=== PATIENT | male | born 1945 | race Caucasian/White ===

== ENCOUNTER 2017-07-22 03:07 | Emergency (ER) | payer MEDICARE, OTHER ==
[2017-07-22 03:32] VITALS: BP 116/69
[2017-07-22] MEDS ORDERED: LIDOCAINE 1% INJ-PF (10 MG/ML) 30 ML SDV INJ ONE (03:46)
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
[2017-07-22] MEDS ORDERED: HYDROCODONE/ACETAMINOPHEN 5-325 MG 6 TAB/DSPK PO PRN (05:07)
== END 2017-07-22 05:13 | disposition home or self-care (01) ==
LOC: ER 03:07
PROC: 0HQ1XZZ Repair Face Skin, External Approach (ICD-10-PCS; principal; 2017-07-22)
DX: S01.81XA Laceration without foreign body of other part of head, initial encounter (principal); S09.90XA Unspecified injury of head, initial encounter; S00.83XA Contusion of other part of head, initial encounter; Y04.2XXA Assault by strike against or bumped into by another person, initial encounter; I10 Essential (primary) hypertension; J45.909 Unspecified asthma, uncomplicated; E11.9 Type 2 diabetes mellitus without complications; E78.00 Pure hypercholesterolemia, unspecified
CPT/HCPCS: 99284; 70450; 70486; 12014; A9270

== ENCOUNTER 2017-07-29 16:46 | Emergency (ER) | payer MEDICARE, OTHER ==
--- NOTE | 2017-07-29 18:09 | ER Document Report ---
HPI - HPI Pain Level: Denies Notes: Patient is a 72-year-old male who presents to the ED for suture removal status post laceration repair about a week ago. Patient states that he did go see his PCM recently who did remove some of the sutures, but left others in that he did not see. Patient states that otherwise he is doing well without any worsening redness or purulent discharge. Patient has not noticed any wound dehiscence. Denies any headache, fever, neck pain, URI, sore throat, chest pain, palpitations, syncope, cough, shortness of breath, wheeze, dyspnea, abdominal pain, nausea/vomiting/diarrhea, numbness/tingling, or rash. - ROS Notes: REVIEW OF SYSTEMS: CONSTITUTIONAL : Denies fever, chills, or sweats. Denies recent illness. EENT: Denies eye, ear, throat, or mouth pain or symptoms. Denies nasal or sinus congestion or discharge. Denies throat, tongue, or mouth swelling or difficulty swallowing. CARDIOVASCULAR: Denies chest pain. Denies palpitations or racing or irregular heart beat. Denies ankle edema. RESPIRATORY: Denies cough, cold, or chest congestion. Denies shortness of breath, difficulty breathing, or wheezing. GASTROINTESTINAL: Denies abdominal pain or distention. Denies nausea, vomiting , or diarrhea. Denies blood in vomitus, stools, or per rectum. Denies black, tarry stools. Denies constipation. GENITOURINARY: Denies difficulty urinating, painful urination, burning, frequency, blood in urine, or discharge. MUSCULOSKELETAL: Denies back or neck pain or stiffness. Denies joint pain or swelling. SKIN: see hpi NEUROLOGICAL: Denies confusion or altered mental status. Denies passing out or loss of consciousness. Denies dizziness or lightheadedness. Denies headache. Denies weakness or paralysis or loss of use of either side. Denies problems with gait or speech. Denies sensory loss, numbness, or tingling. ALL OTHER SYSTEMS REVIEWED AND NEGATIVE. Dictation was performed using [employer] recognition software - CONSTITUTIONAL Constitutional: DENIES: Fever, Chills - EENT EENT: DENIES: Sore Throat, Ear Pain, Nasal Drainage-Clear, Nasal Drainage- Purulent, Congestion, Eye problems - NEURO Neurology: DENIES: Headache, Weakness, Vision blurred, Dizzinesss / Vertigo - RESPIRATORY Respiratory: DENIES: Trouble Breathing, Coughing - GASTROINTESTINAL Gastrointestinal: DENIES: Abdominal Pain, Nausea, Patient vomiting, Diarrhea, Constipation, Black / Bloody Stools - URINARY Urinary: DENIES: Dysuria, Urgency, Frequency - MUSCULOSKELETAL Musculoskeletal: DENIES: Extremity pain, Back Pain, Neck Pain, Swelling - DERM Skin Color: Normal - NURSING COMMENTS Comment: Pt here for suture removal, placed 1 week ago, denies any S/S of infection, NAD noted, ambulated to room 21 with steady gait. Past Medical History - Social History Smoking Status: Unknown if Ever Smoked Family History: Reviewed & Not Pertinent Patient has suicidal ideation: No Patient has homicidal ideation: No - Past Medical History Cardiac Medical History: Reports: Hx Hypercholesterolemia, Hx Hypertension Pulmonary Medical History: Reports: Hx Asthma Endocrine Medical History: Reports: Hx Diabetes Mellitus Type 1, Hx Diabetes Mellitus Type 2 Renal/ Medical History: Denies: Hx Peritoneal Dialysis - Immunizations Immunizations up to date: Yes Hx Diphtheria, Pertussis, Tetanus Vaccination: Yes Vertical Provider Document - CONSTITUTIONAL Agree With Documented VS: Yes Notes: PHYSICAL EXAMINATION: GENERAL: Well-appearing, well-nourished and in no acute distress. HEAD: Atraumatic, normocephalic. EYES: Pupils equal round and reactive to light, extraocular movements intact, sclera anicteric, conjunctiva are normal. ENT: EAC clear b/l. TM's intact b/l without erythema, fluid, or perforation. Nares patent and without discharge. oropharynx clear without exudates. No tonsilar hypertrophy or erythema. Moist mucous membranes. No sinus tenderness. NECK: Normal range of motion, supple without lymphadenopathy LUNGS: Breath sounds clear to auscultation bilaterally and equal. No wheezes rales or rhonchi. HEART: Regular rate and rhythm without murmurs, rubs, gallops. NEUROLOGICAL: Cranial nerves grossly intact. Normal speech, normal gait. Normal sensory, motor exams PSYCH: Normal mood, normal affect. SKIN: There appears to be 5 remaining sutures that need taken out. Wound w/o erythema, abscess, wound dehiscense, streaks, or discharge. Appear well-healed. - INFECTION CONTROL TRAVEL OUTSIDE OF THE [place] IN LAST 30 DAYS: No - RESPIRATORY O2 Sat by Pulse Oximetry: 96 Course - Re-evaluation Re-evalutation: 07/29/17 18:12 Patient is an afebrile, well-hydrated, 72-year-old male who presents the ED for suture removal of remaining sutures left by his PCM. Vitals are stable. PE otherwise unremarkable. 5 simple sutures were removed that were left over. I do not see any other evidence of remaining sutures at this time. Patient to monitor for any signs of infection or wound dehiscence. Recheck with your PCM this week. Return to the ED with any worsening/concerning symptoms otherwise as reviewed discharge. Patient is in agreement. - Vital Signs Vital signs: Temp Pulse Resp BP Pulse Ox 98.6 F 81 20 142/69 H 96 07/29/17 17:14 07/29/17 17:14 07/29/17 17:14 07/29/17 17:14 07/29/17 17:14 Discharge - Discharge Clinical Impression: Encounter for removal of sutures Disposition: HOME, SELF-CARE Instructions: Suture Removal Additional Instructions: Monitor for any signs of infection (redness, streaks, abscess, discharge, fever ) and seek medical attention if so. Keep the skin clean and dry Recheck with your PCM this week Return to the ED with any worsening or concerning symptoms. Forms: Elevated Blood Pressure
[2017-07-29 18:38] VITALS: BP 121/68
== END 2017-07-29 18:31 | disposition home or self-care (01) ==
LOC: ER 16:46
DX: Z48.02 Encounter for removal of sutures (principal)

== ENCOUNTER → 2017-11-23 | Outpatient (CLI) | payer MEDICARE, OTHER ==
--- NOTE | 2017-11-23 15:14 | RADIOLOGY REPORT (SQ) ---
EXAM DESCRIPTION: CT ABD/PELVIS WITH IV ONLY COMPLETED DATE/TIME: 11/23/2017 2:58 pm REASON FOR STUDY: LLQ PAIN (R10.32) R10.32 LEFT LOWER QUADRANT PAIN COMPARISON: None. TECHNIQUE: CT scan of the abdomen and pelvis performed using helical scanning technique with dynamic intravenous contrast injection. No oral contrast. Images reviewed with lung, soft tissue, and bone windows. Reconstructed coronal and sagittal MPR images reviewed. Delayed images for evaluation of the urinary system also acquired. All images stored on PACS. All CT scanners at this facility use dose modulation, iterative reconstruction, and/or weight based d osing when appropriate to reduce radiation dose to as low as reasonably achievable (ALARA). [facility]: Dose Right [facility]: CareDose [facility]: Dose Right [facility]: Teradose 4D [facility]: [employer] CONTRAST TYPE AND DOSE: contrast/concentration: Isovue 370.00 mg/ml; Total Contrast Delivered: 97.0 ml; Total Saline Delivered: 70.0 ml RENAL FUNCTION: Creatinine 1.4. RADIATION DOSE: CT Rad equipment meets quality standard of care and radiation dose reduction techniq ues were employed. CTDIvol: 22.8 - 24.7 mGy. DLP: 2663 mGy-cm.. LIMITATIONS: None. FINDINGS: LOWER CHEST: No significant findings. No nodules or infiltrates. LIVER: Normal size. Diffuse fatty infiltration. No masses. No dilated ducts. SPLEEN: Normal size. No focal lesions. PANCREAS: No masses. No significant calcifications. No adjacent inflammation or peripancreatic fluid collections. Pancreatic duct not dilated. GALLBLADDER: No identified stones by CT criteria. No inflammatory changes to suggest cholecystitis. ADRENAL GLANDS: Fatty lesions in the left adrenal gland measuring 1.2 cm and 2 cm. RIGHT KIDNEY AND URETER: No solid masses. 2 cm cortical cyst. 3 mm calyceal calculus. No hydrone phrosis or hydroureter. LEFT KIDNEY AND URETER: Cortical cysts. No solid masses. No significant calcifications. No hydro nephrosis or hydroureter. AORTA AND VESSELS: No aneurysm. No dissection. Renal arteries, SMA, celiac without stenosis. RETROPERITONEUM: No retroperitoneal adenopathy, hemorrhage or masses. BOWEL AND PERITONEAL CAVITY: Colonic diverticuli. Mild focal inflammation involving the proximal sig moid colon. No abnormal fluid collection. No extraluminal gas. . No free fluid or peritoneal arcelia s. APPENDIX: Normal. PELVIS: No mass. No free fluid. Normal bladder. ABDOMINAL WALL: No masses. Umbilical hernia containing fat only. No involvement of bowel. BONES: No significant or acute findings. OTHER: No other significant finding. IMPRESSION: 1. MILD EARLY DIVERTICULITIS INVOLVING THE PROXIMAL SIGMOID COLON. NO EVIDENCE OF ABSCESS OR PERFORA TION. 2. SMALL NONOBSTRUCTING CALYCEAL CALCULUS IN THE RIGHT KIDNEY. CORTICAL CYSTS IN BOTH KIDNEYS. 3. 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 4. SMALL UMBILICAL HERNIA CONTAINING FAT. NO INVOLVEMENT OF BOWEL. 5. NO OTHER SIGNIFICANT FINDINGS. TECHNICAL DOCUMENTATION: JOB ID: [id number] Quality ID # 436: Final reports with documentation of one or more dose reduction techniques (e.g., Au tomated exposure control, adjustment of the mA and/or kV according to patient size, use of iterative reconstruction technique) 2010 [employer]- All Rights Reserved
== END ==
LOC: RAD 13:24
PROVIDERS: ATTEND Internal Medicine
DX: R10.32 Left lower quadrant pain (principal)
CPT/HCPCS: 74177; 82565

== ENCOUNTER → 2018-08-25 | Outpatient (CLI) | payer MEDICARE, OTHER ==
--- NOTE | 2018-08-25 14:21 | RADIOLOGY REPORT (SQ) ---
EXAM DESCRIPTION: CHEST 2 VIEWS COMPLETED DATE/TIME: 08/25/2018 1:11 pm REASON FOR STUDY: J20.9 ACUTE BRONCHITIS, UNSPEC ORGANISM COMPARISON: None. EXAM PARAMETERS: NUMBER OF VIEWS: two views TECHNIQUE: Digital Frontal and Lateral radiographic views of the chest acquired. RADIATION DOSE: NA LIMITATIONS: none FINDINGS: LUNGS AND PLEURA: No consolidation, pneumothorax or pleural effusion. MEDIASTINUM AND HILAR STRUCTURES: No masses or contour abnormalities. HEART AND VASCULAR STRUCTURES: Heart normal size. No evidence for failure. BONES: Degenerative changes are noted at the spine. HARDWARE: None in the chest. IMPRESSION: NO ACUTE RADIOGRAPHIC FINDING IN THE CHEST. TECHNICAL DOCUMENTATION: JOB ID: [id number] 2010 [employer]- All Rights Reserved Reading location - IP/workstation name: [email or web address]
== END ==
LOC: RAD 12:53
PROVIDERS: ATTEND Nurse Practitioner Family
DX: J20.9 Acute bronchitis, unspecified (principal)
CPT/HCPCS: 71046

== ENCOUNTER 2020-01-28 12:26 | Inpatient (IN) | payer MEDICARE, OTHER ==
[2020-01-28] MEDS: NORMAL SALINE 1000 ML 1,000 ML IV PRN (13:14)
[2020-01-28 14:08] LABS: HEMATOCRIT 43.5 % (37.9-51.0); HEMOGLOBIN 15.5 g/dL (13.5-17.0); MEAN CORPUSCULAR HEMOGLOBIN 31.7 pg (27.0-33.4); MEAN CORPUSCULAR HGB CONC 35.6 g/dL (32.0-36.0); MEAN CORPUSCULAR VOLUME 89 fl (80-97); PLATELET COUNT 174 10^3/uL (150-450); RED BLOOD COUNT 4.87 10^6/uL (4.35-5.55); RED CELL DISTRIBUTION WIDTH 13.4 % (11.5-14.0); WHITE BLOOD COUNT 13.3 10^3/uL (4.0-10.5)
--- NOTE | 2020-01-28 14:11 | RADIOLOGY REPORT (SQ) ---
EXAM DESCRIPTION: CHEST SINGLE VIEW IMAGES COMPLETED DATE/TIME: 01/28/2020 1:56 pm REASON FOR STUDY: orthostasis COMPARISON: 08/25/2018. EXAM PARAMETERS: NUMBER OF VIEWS: One view. TECHNIQUE: Single frontal radiographic view of the chest acquired. RADIATION DOSE: NA LIMITATIONS: None. FINDINGS: LUNGS AND PLEURA: No opacities, masses or pneumothorax. No pleural effusion. MEDIASTINUM AND HILAR STRUCTURES: No masses. Contour normal. HEART AND VASCULAR STRUCTURES: Heart normal in size. Normal vasculature. BONES: No acute findings. HARDWARE: None in the chest. OTHER: No other significant finding. IMPRESSION: No evidence of acute cardiopulmonary process. TECHNICAL DOCUMENTATION: JOB ID: [id number] 2010 [employer]- All Rights Reserved Reading location - IP/workstation name: [email or web address]
[2020-01-28] MEDS ORDERED: GLUCAGON,HUMAN RECOMB 1 MG INJ IM PRN (14:30)
[2020-01-28] MEDS ORDERED: DEXTROSE 40% GEL 15 GM TUBE PO PRN (14:30)
[2020-01-28] MEDS ORDERED: DEXTROSE 50%-WATER SYRINGE 12.5 GM/25 ML DOSE IV PRN (14:30)
[2020-01-28] MEDS ORDERED: DEXTROSE 40% GEL 15 GM TUBE X 2 PO PRN (14:30)
[2020-01-28] MEDS ORDERED: DEXTROSE 50%-WATER SYRINGE 25 GM/50 ML DOSE IV PRN (14:30)
[2020-01-28 14:31] LABS: ALKALINE PHOSPHATASE 42 U/L (38-126); ANION GAP 17 (5-19); ASPARTATE AMINO TRANSFERASE 35 U/L (17-59); BILIRUBIN,DIRECT 0.3 mg/dL (0.0-0.4); BILIRUBIN,TOTAL 0.9 mg/dL (0.2-1.3); BLOOD UREA NITROGEN 48 mg/dL (7-20); CARBON DIOXIDE 20 mmol/L (22-30); CHLORIDE 93 mmol/L (98-107); CREATINE KINASE 158 U/L (55-170); GLUCOSE 191 mg/dL (75-110); POTASSIUM 3.6 mmol/L (3.6-5.0)
[2020-01-28 14:42] LABS: CREATINE KINASE MB 1.17 ng/mL (<4.55); TROPONIN I 0.025 ng/mL
--- NOTE | 2020-01-28 15:41 | RADIOLOGY REPORT (SQ) ---
EXAM DESCRIPTION: CT HEAD WITHOUT IMAGES COMPLETED DATE/TIME: 01/28/2020 2:42 pm REASON FOR STUDY: altered mental status COMPARISON: 07/22/2017 TECHNIQUE: Axial images acquired through the brain without intravenous contrast. Images reviewed wi th bone, brain and subdural windows. Additional sagittal and coronal reconstructions were generated. Images stored on PACS. All CT scanners at this facility use dose modulation, iterative reconstruction, and/or weight based d osing when appropriate to reduce radiation dose to as low as reasonably achievable (ALARA). [facility]: Dose Right [facility]: CareDose [facility]: Dose Right [facility]: Teradose 4D [facility]: [employer] RADIATION DOSE: CT Rad equipment meets quality standard of care and radiation dose reduction techniq ues were employed. CTDIvol: 48.6 mGy. DLP: 954 mGy-cm. mGy. LIMITATIONS: None. FINDINGS: VENTRICLES: Age-appropriate. CEREBRUM: No masses. No hemorrhage. No midline shift. Areas of low density in the white matter mos t likely due to chronic micro-vascular ischemic change. No evidence for acute infarction. Bilateral basal ganglia mineralization. CEREBELLUM: No masses. No hemorrhage. No alteration of density. No evidence for acute infarction. EXTRAAXIAL SPACES: Mild age-related involutional change. No fluid collections. No masses. ORBITS AND GLOBE: No intra- or extraconal masses. Normal contour of globe without masses. CALVARIUM: No fracture. PARANASAL SINUSES: No fluid or mucosal thickening. SOFT TISSUES: No mass or hematoma. Scattered tonsilliths. OTHER: Vascular calcifications. IMPRESSION: MILD CHRONIC CHANGES OF ATROPHY AND MICROVASCULAR ISCHEMIA. NO ACUTE PROCESS. EVIDENCE OF ACUTE STROKE: NO. TECHNICAL DOCUMENTATION: JOB ID: [id number] Quality ID # [id number]: Final reports with documentation of one or more dose reduction techniques (e.g., Au tomated exposure control, adjustment of the mA and/or kV according to patient size, use of iterative reconstruction technique) 2010 [employer]- All Rights Reserved Reading location - IP/workstation name: [email or web address]
[2020-01-28] MEDS: INSULIN LISPRO 100 UNIT/ML 3 ML VIAL SUBCUT SCH ×2 (16:20→21:55)
--- NOTE | 2020-01-28 16:30 | RADIOLOGY REPORT (SQ) ---
EXAM DESCRIPTION: U/S RETROPERITON (RENAL/AORTA) IMAGES COMPLETED DATE/TIME: 01/28/2020 4:04 pm REASON FOR STUDY: acute kidney injury COMPARISON: 11/23/2017 TECHNIQUE: Dynamic and static grayscale images acquired of the kidneys and bladder and recorded on P ACS. Additional selected color Doppler and spectral images recorded. LIMITATIONS: None. FINDINGS: RIGHT KIDNEY: Normal size measuring 12.8 cm. Normal echogenicity. No solid or suspicious m asses. There is a interpolar cyst measuring 2.0 cm. No hydronephrosis. No calcifications. LEFT KIDNEY: Normal size measuring 12.1 cm. Normal echogenicity. No solid or suspicious masses. A l ower pole cystic lesion measuring up to 2.9 cm, likely cyst and minimally increased in size from prio r CT. Possible mild fullness of the renal pelvis. No caliceal dilation. BLADDER: No masses. OTHER FINDINGS: No other significant finding. IMPRESSION: Bilateral renal cysts, largest on the left measuring 2.9 cm. Mild fullness of the left renal pelvis. No caliceal dilation. TECHNICAL DOCUMENTATION: JOB ID: [id number] 2010 [employer]- All Rights Reserved Reading location - IP/workstation name: [email or web address]
[2020-01-28 17:13] LABS: CHOLESTEROL 100.82 mg/dL (0-200); TRIGLYCERIDES 125 mg/dL (<150)
--- NOTE | 2020-01-28 17:19 | PDOC H&P ---
History of Present Illness Admission Date/PCP: 01/28/20 12:26 CATALINA MORIN MD History of Present Illness: BRENNAN MURRY is a 75 year old male, He came to the office today for eval uation of multiple nonspecific symptoms, he said he pressure wash his house last weekend and he has not felt the same ever since then, he complain of generalized myalgia, extreme fatigue, not able to focus. In the office he was evaluated he was found to have unusually low blood pressure, the systolic pressure was 70s systolic, standing, he was orthostatic the blood pressure in supine was 110, bec ause of the orthostasis and the fact that he has none specific symptoms and he also looks very slow somewhat altered, out of character he is slow to answer questions I felt it is best to admit him directly to the hospital for further evaluation.The hemogram revealed leukocytosis, WBC 13,000, the metabolic profile revealed hyponatremia sodium 129, elevated serum creatinine at 1.6. The serum osmolality was normal, the urine osmolality was high, kidney ultrasound that was normal at the ureter/renal process there was cyst in the kidney in the inferior pole of the kidneys Past Medical History Cardiac Medical History: Reports: Hyperlipidema, Hypertension Pulmonary Medical History: Reports: Asthma Endocrine Medical History: Reports: Diabetes Mellitus Type 2, Obesity Social History Smoking Status: Never Smoker Electronic Cigarette use?: No Frequency of Alcohol Use: None Hx Recreational Drug Use: No Hx Prescription Drug Abuse: No Family History Family History: Reviewed & Not Pertinent Parental Family History Reviewed: Yes Children Family History Reviewed: Yes Sibling(s) Family History Reviewed.: Yes Medication/Allergy Home Medications: Albuterol Sulfate [Ventolin Hfa 8 gm Mdi] 2 puff IH Q6HP PRN 01/28/20 Amlodipine Besylate [Norvasc 10 mg Tablet] 10 mg PO DAILY 01/28/20 Aspirin [Ecotrin 81 mg EC Tablet] 81 mg PO DAILY 01/28/20 Atorvastatin Calcium [Lipitor 40 mg Tablet] 40 mg PO QHS 01/28/20 Glipizide [Glucotrol 10 mg Tablet] 10 mg PO BID 01/28/20 Losartan/Hydrochlorothiazide [Losartan-Hctz 100-25 mg Tab] 1 tab PO DAILY 01/28/20 Metformin HCl [Glucophage] 1,000 mg PO BID 01/28/20 Montelukast Sodium [Singulair 10 mg Tablet] 10 mg PO QPM 01/28/20 Allergies/Adverse Reactions: No Known Allergies Allergy (Verified 07/29/17 17:18) Review of Systems Constitutional: PRESENT: fatigue, weakness Eyes: ABSENT: visual disturbances Ears: ABSENT: hearing changes Cardiovascular: ABSENT: chest pain, dyspnea on exertion, edema, orthropnea, palpitations Respiratory: ABSENT: cough, hemoptysis Gastrointestinal: ABSENT: abdominal pain, constipation, diarrhea, hematemesis, hematochezia, nausea, vomiting Genitourinary: ABSENT: dysuria, hematuria Musculoskeletal: ABSENT: joint swelling Integumentary: ABSENT: rash, wounds Neurological: ABSENT: abnormal gait, abnormal speech, confusion, dizziness, focal weakness, syncope Psychiatric: ABSENT: anxiety, depression, homidical ideation, suicidal ideation Endocrine: ABSENT: cold intolerance, heat intolerance, menstrual abnormalities, polydipsia, polyuria Hematologic/Lymphatic: ABSENT: easy bleeding, easy bruising, lymphadenopathy Physical Exam Vital Signs: Temp Pulse Resp BP Pulse Ox 97.3 F 103 H 18 93/56 L 96 01/28/20 12:48 01/28/20 12:48 01/28/20 12:48 01/28/20 12:48 01/28/20 12:48 Intake & Output 01/27/20 01/28/20 01/29/20 06:59 06:59 06:59 Weight 103.8 kg General appearance: PRESENT: other - Patient is alert somewhat confused slow to respond to questions not in acute distress Head exam: PRESENT: atraumatic, normocephalic Eye exam: PRESENT: PERRLA Ear exam: PRESENT: normal external ear exam Mouth exam: PRESENT: dry mucosa, moist, tongue midline Neck exam: PRESENT: full ROM Respiratory exam: PRESENT: clear to auscultation lizeth Cardiovascular exam: PRESENT: RRR, +S1, +S2 Pulses: PRESENT: normal dorsalis pedis pul, +2 pedal pulses bilateral Vascular exam: PRESENT: normal capillary refill GI/Abdominal exam: PRESENT: normal bowel sounds, soft Rectal exam: PRESENT: deferred Neurological exam: PRESENT: alert, CN II-XII grossly intact Psychiatric exam: PRESENT: appropriate affect, normal mood Skin exam: PRESENT: dry, intact, warm Results Laboratory Results: 01/28/20 13:33 01/28/20 13:33 01/28/20 01/28/20 01/28/20 13:33 13:33 13:33 WBC 13.3 H RBC 4.87 Hgb 15.5 Hct 43.5 MCV 89 MCH 31.7 MCHC 35.6 RDW 13.4 Plt Count 174 Sodium 129.8 L Potassium 3.6 Chloride 93 L Carbon Dioxide 20 L Anion Gap 17 BUN 48 H Creatinine 1.66 H Est GFR ( Amer) 49 L Glucose 191 H Serum Osmolality Calcium 9.0 Total Bilirubin 0.9 AST 35 Alkaline Phosphatase 42 Total Protein 7.0 Albumin 4.0 TSH 1.94 Free T4 Urine Osmolality 01/28/20 01/28/20 01/28/20 13:33 13:51 16:15 WBC RBC Hgb Hct MCV MCH MCHC RDW Plt Count Sodium Potassium Chloride Carbon Dioxide Anion Gap BUN Creatinine Est GFR ( Amer) Glucose Serum Osmolality 282 Calcium Total Bilirubin AST Alkaline Phosphatase Total Protein Albumin TSH Free T4 0.98 Urine Osmolality 591 01/28/20 01/28/20 13:33 13:33 Creatine Kinase 158 CK-MB (CK-2) 1.17 Troponin I 0.025 Impressions: Chest X-Ray 01/28/20 00:00 IMPRESSION: No evidence of acute cardiopulmonary process. Head CT 01/28/20 00:00 IMPRESSION: MILD CHRONIC CHANGES OF ATROPHY AND MICROVASCULAR ISCHEMIA. NO ACUTE PROCESS. EVIDENCE OF ACUTE STROKE: NO. Renal Ultrasound 01/28/20 00:00 IMPRESSION: Bilateral renal cysts, largest on the left measuring 2.9 cm. Mild fullness of the left renal pelvis. No caliceal dilation. Assessment & Plan - Diagnosis (1) Hypotension Qualifiers: Hypotension type: unspecified hypotension type Qualified Code(s): I95.9 - Hypotension, unspecified Is this a current diagnosis for this admission?: Yes Plan: The blood pressure is low with orthostasis, suggesting loss of volume, no evidence of GI bleed, The loss of volume is probably from prolonged exposure in the relatively hot weather when he did pressure washing of his house and the fact that he continued taking is medications including Invokana, losartan HCTZ which also increases loss of volume, the Invokana is not listed on the medication reconciliation because he gets samples from the office he has never filled the medication from the pharmacy so the pharmacist cannot reconcile the medication with the hospital pharmacy because he does not feel medication from them, patient will be vigorously hydrated and hopefully restore volume and blood pressure (2) Hyponatremia Is this a current diagnosis for this admission?: Yes Plan: The serum osmolality is normal suggesting pseudohyponatremia (3) Acute kidney injury Is this a current diagnosis for this admission?: Yes Plan: This is most likely prerenal azotemia
[2020-01-28 17:23] LABS: DIRECT LDL 43 mg/dL (<100)
[2020-01-28 17:32] LABS: ARTERIAL BLOOD BASE EXCESS -2.7 mmol/L; ARTERIAL BLOOD H2CO3 0.96 mmol/L (1.05-1.35); ARTERIAL BLOOD HCO3 20.5 mmol/L (20-24); ARTERIAL BLOOD O2 SATURATION 94.8 % (94-98); ARTERIAL BLOOD PCO2 31.8 mmHg (35-45); ARTERIAL BLOOD PH 7.43 (7.35-7.45); ARTERIAL BLOOD PO2 70.9 mmHg (80-100); ARTERIAL BLOOD TOTAL CO2 21.5 mmol/L (23-27)
[2020-01-28 17:34] LABS: ARTERIAL BLOOD FIO2 ROOM AIR
[2020-01-28 18:20] LABS: APPEARANCE,URINE SLIGHTLY-CLOUDY; BILIRUBIN,URINE NEGATIVE (NEGATIVE); COLOR,URINE YELLOW; GLUCOSE, URINE >=500 mg/dL (NEGATIVE); KETONES,URINE NEGATIVE (NEGATIVE); LEUKOCYTE ESTERASE,URINE NEGATIVE (NEGATIVE); NITRITE,URINE NEGATIVE (NEGATIVE); PROTEIN,URINE 30 mg/dL (NEGATIVE); URINE SPECIFIC GRAVITY 1.021; UROBILINOGEN,URINE NEGATIVE mg/dL (<2.0)
--- NOTE | 2020-01-28 18:30 | XCELERA REPORT ---
[address] [address] Transthoracic Echocardiogram Report Name: BRENNAN MURRY Age: 75 yrs Gender: Male : 1945 Patient Status: Inpatient Patient Location: [facility]^A Study Date: 01/28/2020 03:05 PM Height: 67 in Weight: 228 lb BSA: 2.1 m2 Reason For Study: hypotension Ordering Physician: CATALINA MORIN Performed By: Radha Gonzales Interpretation Summary FINDINGS: technically difficult study. LEFT VENTRICLE: LV Systolic function: LVEF is felt to be within normal limits. Best estimate is approximately LVEF is 60 %. LV Diastolic Function: Grade II diastolic dysfunction noted. Wall motion : No definite regional wall motion abnormalities are noted. Left ventricular chamber size : is within normal limit. Left ventricular wall thickness : is increased indicative of Mild LVH. INTERVENTRICULAR SEPTUM: no evidence of VSD noted. No asymmetric hypertrophy noted. RIGHT VENTRICLE: RV systolic function : is felt to be within normal limit. Right Ventricle Size : mildly dilated. LEFT ATRIUM size : mildly dilated. RIGHT ATRIUM size : is within normal limit. INTER ATRIAL SEPTUM : No definite atrial septal defect noted however a small PFO could be missed. AORTIC ROOT : seems to be within normal limits. Ascending aorta is not well visualized. INFERIOR VENA CAVA: was not well visualized. VALVES: MITRAL VALVE : Leaflets are mildly thickened. Leaflets mildly calcified. Mobility seems to be within normal limits. Mitral Regurgitation : Trace mitral regurgitation is noted. Mitral Stenosis: No mitral stenosis noted. Mitral valve prolapse : none noted. AORTIC VALVE: not well visualized, seems to be trileaflet with thickening but adequate excursion. Aortic stenosis : No aortic stenosis noted. Aortic regurgitation : No aortic incompetence noted. TRICUSPID VALVE : mobility and structures within normal limit. Tricuspid stenosis : no tricuspid stenosis noted. Tricuspid regurgitation : Trace tricuspid regurgitation noted. Estimated RVSP : tricuspid jet envelope not well defined to measure RV systolic pressure accurately. PULMONARY VALVE : was not well visualized but no significant abnormalities suspected. Pulmonary stenosis : no significant pulmonary stenosis noted. Pulmonary regurgitation : no significant pulmonary regurgitation noted. MASSES AND THROMBUS : No definite intracardiac thrombus or masses are noted. PERICARDIUM: No pericardial effusion was noted. IMPRESSION : 1. Normal LVEF. 2. Mild LVH noted. 3. Grade II Diastolic Dysfunction noted. 4. No significant valvular stenosis or regurgitation noted. MMode/2D Measurements & Calculations RVDd: 3.4 cm LVIDd: 4.9 cm FS: 38.2 % Ao root diam: 3.0 cm IVSd: 1.2 cm LVIDs: 3.0 cm EDV(Teich): 113.0 ml LVPWd: 1.0 cm ESV(Teich): 35.9 ml Ao root area: 7.0 cm2 LA dimension: 3.8 cm EF(Teich): 68.2 % Doppler Measurements & Calculations MV E max dilcia: MV P1/2t max dilcia: Ao V2 max: LV V1 max P.4 cm/sec 63.2 cm/sec 157.5 cm/sec 3.8 mmHg MV A max dilcia: MV P1/2t: 66.4 msec Ao max PG: LV V1 max: 79.8 cm/sec MVA(P1/2t): 3.3 cm2 9.9 mmHg 97.2 cm/sec MV E/A: 0.82 MV dec slope: 279.0 cm/sec2 MV dec time: 0.22 sec PA V2 max: MV P1/2t-pr_phl: 107.1 cm/sec 66.5 msec PA max P.6 mmHg : CATALINA MORIN Shyamal
[2020-01-28 21:37] LABS: CREATINE KINASE MB 1.12 ng/mL (<4.55); TROPONIN I 0.012 ng/mL
[2020-01-29] MEDS: NORMAL SALINE 1000 ML 1,000 ML IV PRN ×2 (02:04→12:16)
[2020-01-29 06:15] LABS: CREATINE KINASE MB 0.86 ng/mL (<4.55); TROPONIN I 0.021 ng/mL
[2020-01-29] MEDS: INSULIN LISPRO 100 UNIT/ML 3 ML VIAL SUBCUT SCH ×4 (08:49→21:50)
[2020-01-29 13:19] LABS: CREATINE KINASE MB 1.09 ng/mL (<4.55)
[2020-01-29 13:22] LABS: TROPONIN I < 0.012 ng/mL
[2020-01-29] MEDS ORDERED: ALBUTEROL SULFATE HFA (90 MCG/PUFF) 8 GM MDI IH PRN (17:32)
[2020-01-29] MEDS ORDERED: TAMSULOSIN HCL 0.4 MG CAP.SR.24H PO SCH (18:00)
[2020-01-29] MEDS ORDERED: MONTELUKAST SODIUM 10 MG TABLET PO SCH (18:00)
[2020-01-29] MEDS: GLIPIZIDE 10 MG TABLET PO SCH (18:02)
[2020-01-29] MEDS: ASPIRIN 81 MG TABLET, ENT COATED PO SCH (18:04)
[2020-01-29 18:05] LABS: ABSOLUTE BASOPHILS # (AUTO) 0.1 10^3/uL (0.0-0.2); ABSOLUTE LYMPHOCYTES (AUTO) 0.7 10^3/uL (0.5-4.7); ABSOLUTE MONOCYTES (AUTO) 1.4 10^3/uL (0.1-1.4); ABSOLUTE NEUT (AUTO) 6.4 10^3/uL (1.7-8.2); BASOPHILS % (AUTO) 0.7 % (0-2); EOSINOPHILS % (AUTO) 0.2 % (0-6); HEMATOCRIT 41.6 % (37.9-51.0); HEMOGLOBIN 14.6 g/dL (13.5-17.0); LYMPHOCYTES % (AUTO) 7.7 % (13-45); MEAN CORPUSCULAR HEMOGLOBIN 31.4 pg (27.0-33.4); MEAN CORPUSCULAR HGB CONC 35.1 g/dL (32.0-36.0); MEAN CORPUSCULAR VOLUME 89 fl (80-97); MONOCYTES % (AUTO) 16.7 % (3-13); PLATELET COUNT 152 10^3/uL (150-450); RED BLOOD COUNT 4.66 10^6/uL (4.35-5.55); RED CELL DISTRIBUTION WIDTH 13.2 % (11.5-14.0); SEGMENTED NEUTROPHILS % (AUTO) 74.7 % (42-78); TOTAL CELLS COUNTED % (AUTO) 100 %; WHITE BLOOD COUNT 8.5 10^3/uL (4.0-10.5)
[2020-01-29 18:21] LABS: ALBUMIN 3.4 g/dL (3.5-5.0); ALKALINE PHOSPHATASE 44 U/L (38-126); ANION GAP 10 (5-19); ASPARTATE AMINO TRANSFERASE 36 U/L (17-59); BILIRUBIN,DIRECT 0.2 mg/dL (0.0-0.4); BILIRUBIN,TOTAL 0.8 mg/dL (0.2-1.3); BLOOD UREA NITROGEN 35 mg/dL (7-20); CALCIUM 8.5 mg/dL (8.4-10.2); CARBON DIOXIDE 22 mmol/L (22-30); CHLORIDE 99 mmol/L (98-107); GLUCOSE 246 mg/dL (75-110); POTASSIUM 3.9 mmol/L (3.6-5.0); TOTAL PROTEIN 6.6 g/dL (6.3-8.2)
--- NOTE | 2020-01-29 20:14 | PDOC PROGRESS REPORT ---
Subjective Progress Note for:: 01/29/20 Subjective:: Patient seen today by the bedside, he is more focused, the blood pressure has improved is no more orthostatic this erythema is improved suggesting that the orthostasis is most likely from loss of volume due to prolonged exposure in the relatively hot weather and the fact that he was on medication that tend to induce loss of volume including Invokana.He complains of constipation, dysuria, and urine dripping that suggests enlarged prostate gland Reason For Visit: HYPOTENSION - ORTHOSTASIS Physical Exam Vital Signs: Temp Pulse Resp BP Pulse Ox 98.1 F 77 18 122/66 98 01/29/20 16:23 01/29/20 16:23 01/29/20 16:23 01/29/20 16:23 01/29/20 16:23 Intake & Output 01/28/20 01/29/20 01/30/20 06:59 06:59 06:59 Intake Total 1702 2713 Balance 1702 2713 Weight 107 kg General appearance: PRESENT: no acute distress Eye exam: PRESENT: PERRLA Mouth exam: PRESENT: moist Respiratory exam: PRESENT: clear to auscultation lizeth Cardiovascular exam: PRESENT: +S1, +S2 GI/Abdominal exam: PRESENT: soft Neurological exam: PRESENT: alert Results Laboratory Results: 01/29/20 17:47 01/29/20 17:47 01/28/20 01/29/20 01/29/20 22:14 17:47 17:47 WBC 8.5 RBC 4.66 Hgb 14.6 Hct 41.6 MCV 89 MCH 31.4 MCHC 35.1 RDW 13.2 Plt Count 152 Seg Neutrophils % 74.7 Sodium 131.2 L Potassium 3.9 Chloride 99 Carbon Dioxide 22 Anion Gap 10 BUN 35 H Creatinine 1.11 Est GFR ( Amer) > 60 Glucose 246 H Lactic Acid 1.4 Calcium 8.5 Total Bilirubin 0.8 AST 36 Alkaline Phosphatase 44 Total Protein 6.6 Albumin 3.4 L 01/28/20 01/28/20 01/28/20 13:33 13:33 20:57 Creatine Kinase 158 154 CK-MB (CK-2) 1.17 Troponin I 0.025 01/28/20 01/29/20 01/29/20 20:57 05:06 05:06 Creatine Kinase 125 CK-MB (CK-2) 1.12 0.86 Troponin I 0.012 0.021 01/29/20 01/29/20 12:40 12:40 Creatine Kinase 108 CK-MB (CK-2) 1.09 Troponin I < 0.012 Impressions: Chest X-Ray 01/28/20 00:00 IMPRESSION: No evidence of acute cardiopulmonary process. Head CT 01/28/20 00:00 IMPRESSION: MILD CHRONIC CHANGES OF ATROPHY AND MICROVASCULAR ISCHEMIA. NO ACUTE PROCESS. EVIDENCE OF ACUTE STROKE: NO. Renal Ultrasound 01/28/20 00:00 IMPRESSION: Bilateral renal cysts, largest on the left measuring 2.9 cm. Mild fullness of the left renal pelvis. No caliceal dilation. Assessment & Plan - Diagnosis (1) Hypotension Qualifiers: Hypotension type: unspecified hypotension type Qualified Code(s): I95.9 - Hypotension, unspecified Is this a current diagnosis for this admission?: Yes Plan: Improved (2) Hyponatremia Is this a current diagnosis for this admission?: Yes Plan: Resolved (3) Acute kidney injury Is this a current diagnosis for this admission?: Yes Plan: Resolved (4) Constipation Qualifiers: Constipation type: unspecified constipation type Qualified Code(s): K59.00 - Constipation, unspecified Is this a current diagnosis for this admission?: Yes Plan: Give molasses enema (5) BPH (benign prostatic hyperplasia) Qualifiers: Lower urinary tract symptom detail: urinary hesitancy Is this a current diagnosis for this admission?: Yes Plan: Start tamsulosin - Time Time Spent with patient: 35 or more minutes Level of Care: [facility]
[2020-01-29] MEDS ORDERED: ATORVASTATIN CALCIUM 40 MG TABLET PO SCH (22:00)
[2020-01-30] MEDS: NORMAL SALINE 1000 ML 1,000 ML IV PRN (00:02)
[2020-01-30] MEDS: INSULIN LISPRO 100 UNIT/ML 3 ML VIAL SUBCUT SCH (08:25)
--- NOTE | 2020-01-30 08:30 | PDOC DISCHARGE SUMMARY ---
Impression - Admit/DC Date/PCP Admission Date/Primary Care Provider: 01/28/20 12:26 CATALINA MORIN MD Discharge Date: 01/30/20 - Discharge Diagnosis (1) Hypotension Is this a current diagnosis for this admission?: Yes (2) Hyponatremia Is this a current diagnosis for this admission?: Yes (3) Acute kidney injury Is this a current diagnosis for this admission?: Yes (4) Constipation Is this a current diagnosis for this admission?: Yes (5) BPH (benign prostatic hyperplasia) Is this a current diagnosis for this admission?: Yes - Additional Information Referrals: CATALINA MORIN MD [Primary Care Provider] - 02/06/20 1:30 pm Prescriptions: Tamsulosin HCl [Flomax 0.4 mg Cap.sr] 0.4 mg PO PCSUPPER #90 cap.sr.24h Home Medications: Albuterol Sulfate [Ventolin Hfa 8 gm Mdi] 2 puff IH Q6HP PRN 01/28/20 Amlodipine Besylate [Norvasc 10 mg Tablet] 10 mg PO DAILY 01/28/20 Aspirin [Ecotrin 81 mg EC Tablet] 81 mg PO DAILY 01/28/20 Atorvastatin Calcium [Lipitor 40 mg Tablet] 40 mg PO QHS 01/28/20 Glipizide [Glucotrol 10 mg Tablet] 10 mg PO BID 01/28/20 Losartan/Hydrochlorothiazide [Losartan-Hctz 100-25 mg Tab] 1 tab PO DAILY 01/28/20 Metformin HCl [Glucophage] 1,000 mg PO BID 01/28/20 Montelukast Sodium [Singulair 10 mg Tablet] 10 mg PO QPM 01/28/20 Tamsulosin HCl [Flomax 0.4 mg Cap.sr] 0.4 mg PO PCSUPPER #90 cap.sr.24h 01/29/20 History of Present Illiness History of Present Illness: BRENNAN MURRY is a 75 year old male, He came to the office today for evaluation of multiple nonspecific symptoms, he said he pressure wash his house last weekend and he has not felt the same ever since then, he complain of generalized myalgia, extreme fatigue, not able to focus. In the office he was evaluated he was found to have unusually low blood pressure, the systolic pressure was 70s systolic, standing, he was orthostatic the blood pressure in supine was 110, because of the orthostasis and the fact that he has none specific symptoms and he also looks very slow somewhat altered, out of character he is slow to answer questions I felt it is best to admit him directly to the hospital for further evaluation.The hemogram revealed leukocytosis, WBC 13,000, the metabolic profile revealed hyponatremia sodium 129, elevated serum creatinine at 1.6. The serum osmolality was normal, the urine osmolality was high, kidney ultrasound that was normal at the ureter/renal process there was cyst in the kidney in the inferior pole of the kidneys Hospital Course Hospital Course: Patient was admitted for the management of hypotension, orthostasis, acute kidney injury, symptoms and signs that suggest BPH Hypotension Patient presented to the office with complaint of fatigue, lack of energy somewhat altered mental status, he was found to be orthostatic. He was admitted to the hospital for management. He did pressure wash off his house over the weekend he was out in the sun for prolonged period of time, he also takes, Invokana for the treatment of diabetes, losartan HCTZ for blood pressure. He combination of prolonged exposure to sun and the use of Invokana with losartan HCTZ resulted in severe loss of volume with low blood pressure, he was admitted treated with IV fluid with normalization of blood pressure and patient symptoms improved. Acute kidney injury This was prerenal azotemia corrected with fluid treatment Benign prostate hyperplasia with lower urinary tract symptoms He has symptoms that suggest enlarged prostate gland, there is urinary hesitancy, dysuria, he was started on tamsulosin Physical Exam Vital Signs: Temp Pulse Resp BP Pulse Ox 98.0 F 72 15 130/58 H 97 01/30/20 04:27 01/30/20 08:05 01/30/20 08:05 01/30/20 08:05 01/30/20 08:05 Intake & Output 01/29/20 01/30/20 01/31/20 06:59 06:59 06:59 Intake Total 1702 4235 Balance 1702 4235 Weight 107 kg 105.3 kg General appearance: PRESENT: no acute distress Eye exam: PRESENT: PERRLA Respiratory exam: PRESENT: clear to auscultation lizeth Cardiovascular exam: PRESENT: +S1, +S2 GI/Abdominal exam: PRESENT: soft Neurological exam: PRESENT: alert, CN II-XII grossly intact Results Laboratory Results: WBC 8.5 10^3/uL (4.0-10.5) 01/29/20 17:47 RBC 4.66 10^6/uL (4.35-5.55) 01/29/20 17:47 Hgb 14.6 g/dL (13.5-17.0) 01/29/20 17:47 Hct 41.6 % (37.9-51.0) 01/29/20 17:47 MCV 89 fl (80-97) 01/29/20 17:47 MCH 31.4 pg (27.0-33.4) 01/29/20 17:47 MCHC 35.1 g/dL (32.0-36.0) 01/29/20 17:47 RDW 13.2 % (11.5-14.0) 01/29/20 17:47 Plt Count 152 10^3/uL (150-450) 01/29/20 17:47 Lymph % (Auto) 7.7 % (13-45) L 01/29/20 17:47 Frontier % (Auto) 16.7 % (3-13) H 01/29/20 17:47 Eos % (Auto) 0.2 % (0-6) 01/29/20 17:47 Baso % (Auto) 0.7 % (0-2) 01/29/20 17:47 Absolute Neuts (auto) 6.4 10^3/uL (1.7-8.2) 01/29/20 17:47 Absolute Lymphs (auto) 0.7 10^3/uL (0.5-4.7) 01/29/20 17:47 Absolute Monos (auto) 1.4 10^3/uL (0.1-1.4) 01/29/20 17:47 Absolute Eos (auto) 0.0 10^3/uL (0.0-0.6) 01/29/20 17:47 Absolute Basos (auto) 0.1 10^3/uL (0.0-0.2) 01/29/20 17:47 Seg Neutrophils % 74.7 % (42-78) 01/29/20 17:47 D-Dimer 1.28 ug/mL (0.00-0.50) H 01/28/20 13:33 Carbonic Acid 0.96 mmol/L (1.05-1.35) L 01/28/20 17:10 HCO3/H2CO3 Ratio 21:1 01/28/20 17:10 ABG pH 7.43 (7.35-7.45) 01/28/20 17:10 ABG pCO2 31.8 mmHg (35-45) L 01/28/20 17:10 ABG pO2 70.9 mmHg (80-100) L 01/28/20 17:10 ABG HCO3 20.5 mmol/L (20-24) 01/28/20 17:10 ABG Total CO2 21.5 mmol/L (23-27) L 01/28/20 17:10 ABG O2 Saturation 94.8 % (94-98) 01/28/20 17:10 ABG Base Excess -2.7 mmol/L 01/28/20 17:10 FiO2 ROOM AIR 01/28/20 17:10 Sodium 131.2 mmol/L (137-145) L 01/29/20 17:47 Potassium 3.9 mmol/L (3.6-5.0) 01/29/20 17:47 Chloride 99 mmol/L (98-107) 01/29/20 17:47 Carbon Dioxide 22 mmol/L (22-30) 01/29/20 17:47 Anion Gap 10 (5-19) 01/29/20 17:47 BUN 35 mg/dL (7-20) H 01/29/20 17:47 Creatinine 1.11 mg/dL (0.52-1.25) 01/29/20 17:47 Est GFR ( Amer) > 60 (>60) 01/29/20 17:47 Est GFR (MDRD) Non-Af > 60 (>60) 01/29/20 17:47 Glucose 246 mg/dL (75-110) H 01/29/20 17:47 POC Glucose 116 mg/dL (70-110) H 01/30/20 07:31 Hemoglobin A1c % 7.9 % (4.7-6.0) H 01/28/20 13:33 Serum Osmolality 282 mOsm/kg (275-301) 01/28/20 13:33 Lactic Acid 1.4 mmol/L (0.7-2.1) 01/28/20 22:14 Calcium 8.5 mg/dL (8.4-10.2) 01/29/20 17:47 Total Bilirubin 0.8 mg/dL (0.2-1.3) 01/29/20 17:47 Direct Bilirubin 0.2 mg/dL (0.0-0.4) 01/29/20 17:47 Neonat Total Bilirubin Not Reportable 01/29/20 17:47 Neonat Direct Bilirubin Not Reportable 01/29/20 17:47 Neonat Indirect Bili Not Reportable 01/29/20 17:47 AST 36 U/L (17-59) 01/29/20 17:47 ALT 37 U/L (<50) 01/29/20 17:47 Alkaline Phosphatase 44 U/L (38-126) 01/29/20 17:47 Creatine Kinase 108 U/L (55-170) 01/29/20 12:40 CK-MB (CK-2) 1.09 ng/mL (<4.55) 01/29/20 12:40 Troponin I < 0.012 ng/mL 01/29/20 12:40 Total Protein 6.6 g/dL (6.3-8.2) 01/29/20 17:47 Albumin 3.4 g/dL (3.5-5.0) L 01/29/20 17:47 Triglycerides 125 mg/dL (<150) 01/28/20 13:33 Cholesterol 100.82 mg/dL (0-200) 01/28/20 13:33 LDL Cholesterol Direct 43 mg/dL (<100) 01/28/20 13:33 VLDL Cholesterol 25.0 mg/dL (10-31) 01/28/20 13:33 HDL Cholesterol 40 mg/dL (>40) 01/28/20 13:33 TSH 1.94 uIU/mL (0.47-4.68) 01/28/20 13:33 Free T4 0.98 ng/dL (0.78-2.19) 01/28/20 13:51 Urine Color YELLOW 01/28/20 16:15 Urine Appearance SLIGHTLY-CLOUDY 01/28/20 16:15 Urine pH 5.0 (5.0-9.0) 01/28/20 16:15 Ur Specific [place] 1.021 01/28/20 16:15 Urine Protein 30 mg/dL (NEGATIVE) H 01/28/20 16:15 Urine Glucose (UA) >=500 mg/dL (NEGATIVE) H 01/28/20 16:15 Urine Ketones NEGATIVE mg/dL (NEGATIVE) 01/28/20 16:15 Urine Blood SMALL (NEGATIVE) H 01/28/20 16:15 Urine Nitrite NEGATIVE (NEGATIVE) 01/28/20 16:15 Urine Bilirubin NEGATIVE (NEGATIVE) 01/28/20 16:15 Urine Urobilinogen NEGATIVE mg/dL (<2.0) 01/28/20 16:15 Ur Leukocyte Esterase NEGATIVE (NEGATIVE) 01/28/20 16:15 Urine WBC (Auto) 5 /HPF 01/28/20 16:15 Urine RBC (Auto) 1 /HPF 01/28/20 16:15 U Hyaline Cast (Auto) 1 /LPF 01/28/20 16:15 Squamous Epi Cells Auto 1 /HPF 01/28/20 16:15 Urine Mucus (Auto) OCC /LPF 01/28/20 16:15 Urine Osmolality 591 mOsm/kg (300-900) 01/28/20 16:15 Urine Sodium 22 mmol/L (30-90) L 01/28/20 16:15 Urine Ascorbic Acid NEGATIVE (NEGATIVE) 01/28/20 16:15 01/28/20 01/28/20 01/29/20 13:33 20:57 05:06 CK-MB (CK-2) 1.17 1.12 0.86 Troponin I 0.025 0.012 0.021 01/29/20 12:40 CK-MB (CK-2) 1.09 Troponin I < 0.012 Impressions: Chest X-Ray 01/28/20 00:00 IMPRESSION: No evidence of acute cardiopulmonary process. Head CT 01/28/20 00:00 IMPRESSION: MILD CHRONIC CHANGES OF ATROPHY AND MICROVASCULAR ISCHEMIA. NO ACUTE PROCESS. EVIDENCE OF ACUTE STROKE: NO. Renal Ultrasound 01/28/20 00:00 IMPRESSION: Bilateral renal cysts, largest on the left measuring 2.9 cm. Mild fullness of the left renal pelvis. No caliceal dilation. Stroke Is this a Stroke Patient?: No Acute Heart Failure - Is this a Heart Failure Patient?: No
[2020-01-30 08:49] VITALS: BP 104/64
[2020-01-30] MEDS: ASPIRIN 81 MG TABLET, ENT COATED PO SCH (09:15)
[2020-01-30] MEDS: GLIPIZIDE 10 MG TABLET PO SCH (09:15)
[2020-01-30] MEDS ORDERED: (PENDING PHARMACY ID) (Losartan/Hydrochlorothiazide [Losartan-Hctz 100-25 Mg Tab] 1 TAB) PO SCH (10:00)
[2020-01-30] MEDS ORDERED: METFORMIN HCL 500 MG TABLET PO SCH (10:00)
[2020-01-30] MEDS ORDERED: HYDROCHLOROTHIAZIDE 25 MG TABLET PO SCH (10:00)
[2020-01-30] MEDS ORDERED: LOSARTAN POTASSIUM 50 MG TABLET PO SCH (10:00)
== END 2020-01-30 09:21 | disposition home or self-care (01) | DRG 312 ==
LOC: 3W 12:26
PROVIDERS: ADMIT Internal Medicine; ATTEND Internal Medicine
DX: I95.2 Hypotension due to drugs (principal); E87.1 Hypo-osmolality and hyponatremia; N17.9 Acute kidney failure, unspecified; T46.5X5A Adverse effect of other antihypertensive drugs, initial encounter; K59.00 Constipation, unspecified; E11.9 Type 2 diabetes mellitus without complications; I10 Essential (primary) hypertension; N40.1 Benign prostatic hyperplasia with lower urinary tract symptoms; R39.11 Hesitancy of micturition; J45.909 Unspecified asthma, uncomplicated; E66.9 Obesity, unspecified; Z79.899 Other long term (current) drug therapy; Z79.84 Long term (current) use of oral hypoglycemic drugs; Z79.51 Long term (current) use of inhaled steroids; Z79.82 Long term (current) use of aspirin
CPT/HCPCS: 36415; 36600; 70450; 71045; 76770; 80048; 80053; 80061; 80076; 81001; 82550; 82553; 82803; 82962; 83036; 83605; 83930; 83935; 84300; 84439; 84443; 84484; 85025; 85027; 85379; 87040; 87086; 93306; J1815; J3490; J7030